=== PATIENT | male | born 1975 | race Caucasian/White ===

== ENCOUNTER 2020-11-17 11:42 | Emergency (ER) | payer OTHER, SELFPAY ==
[2020-11-17 11:51] VITALS: BP 130/85; PULSE 64; RESP 18; TEMP 36.7; O2SAT 97; BMI 30.3
--- NOTE | 2020-11-17 12:22 | ED_ITS ---
HPI - Extremity Problem General: Chief complaint: Extremity Injury, Lower Stated complaint: stepped on nail Time Seen by Provider: 11/17/20 11:46 History of Present Illness: HPI Narrative: Patient is a 45-year-old male comes to the ED after stepping on a nail. Patient says injury occurred yesterday evening. Patient just bought a house with some land and was cleaning some of the property up. He was wearing some rubber boots and walking there are over room grassy area and did see a board with a nail on it. He stepped on the nail and it went through his boot and into right foot. He then removed the nail from shoe and foot immediately. Afterwards he cleaned and rinsed the wound out. His main reason for coming to the ED today was to get a tetanus shot. Patient denies any other symptoms. Associated symptoms: Deny chest pain, fever(s) or rash Review of Systems Const: Denies: fever(s), chills or fatigue Eyes: Denies: change in vision or eye discomfort ENMT: Denies: throat pain, odynophagia, nasal discharge or nasal congestion Card: Denies: chest pain, palpitations, edema, swelling of feet/ankles, dyspnea on exertion or orthopnea Resp: Denies: dyspnea, productive cough or non-productive cough GI: Denies: abdominal pain, nausea, vomiting, diarrhea, constipation or hematochezia : Denies: flank pain, difficulty urinating, dysuria or hematuria Musc: Denies: neck pain, back pain or extremity swelling Skin/Breast: Reports: new lesions (small superficial puncture wound to bottom of right foot); Denies: rash Neuro: Denies: headache(s), numbness in extremities or weakness in extremities Physical Exam Const: COMMON NORMALS: no acute distress, patient oriented x3 and alert GENERAL APPEARANCE: cooperative and comfortable HENMT: COMMON NORMALS: normocephalic HEAD & SCALP: normocephalic MOUTH: Normal oral and palatal mucosa present THROAT: posterior oropharynx normal and uvula midline Neck/C-Spine: COMMON NORMALS: supple GENERAL: Yes normal visual inspection Resp: COMMON NORMALS: normal respiratory effort, No retractions, No use of accessory muscles and clear to auscultation bilaterally AUSCULTATION: clear to auscultation bilaterally Cardio: COMMON NORMALS: regular rate, regular rhythm, S1 normal heart sound present, S2 normal heart sound present, No gallops present (Cardio), No clicks present (Cardio), No murmurs present (Cardio) and Peripheral pulses 2+ throughout RATE: regular rate RHYTHM: regular rhythm HEART SOUNDS: S1 normal heart sound present and S2 normal heart sound present PERIPHERAL PULSES: Peripheral pulses 2+ throughout GI: COMMON NORMALS: Normal to inspection, nondistended, normoactive bowel sounds present, Soft to palpation, non-tender and no masses PALPATION: Yes Soft to palpation : COMMON NORMALS: Yes no CVA tenderness BLADDER/KIDNEY EXAM: Yes no CVA tenderness Back/Pelvis: COMMON NORMALS: no CVA tenderness Extremity: NARRATIVE EXTREMITY EXAM: Small superficial puncture wound to bottom of right foot. No signs of cellulitis present GENERAL: Yes normal exam except as noted Neuro: COMMON NORMALS: patient oriented x3 and moves all extremities SENSORIUM/ORIENTATION: Yes alert Skin: NARRATIVE SKIN EXAM: Small superficial puncture wound to bottom of right foot. No signs of cellulitis present Course Vital Signs: Vital signs: Vital Signs Temperature 97.9 F 11/17/20 13:12 Pulse Rate 70 11/17/20 13:12 Respiratory Rate 16 11/17/20 13:12 Blood Pressure 129/80 11/17/20 13:12 Pulse Oximetry 96 11/17/20 13:12 MDM - Extremity (Nontraumatic) MDM Narrative: Medical decision making narrative: Patient is a 45-year-old male who comes to the ED after stepping on a nail. Patient removed nail before coming to the ED. His main concern was getting tetanus shot updated. he has small superficial puncture wound to bottom of right foot. Patient was given his tetanus shot and discharged home with prescription for cephalexin. He was told to follow-up with his PCP in 7 to 10 days for reevaluation. Return to ED precautions given. Patient understood agree with plan. Discharge Plan Discharge Patient Disposition: Home Clinical Impression: Puncture wound of foot Qualifiers: Encounter type: initial encounter Laterality: right Qualified Code(s): S91.331A - Puncture wound without foreign body, right foot, initial encounter Condition: Stable Prescriptions: New cephalexin 500 mg capsule 500 mg PO Q6H 7 Days Qty: 28 RF: 0 Discharge Orders: Discharge ED (Routine); Ordered 11/17/20 Ordered By: Chapincito Padron Discharge Diet: Regular Discharge Activity: Resume usual activity Patient Instructions: Puncture Wound (ED), Opioid Safety Activity Restrictions/Additional Instructions: Follow-up with medical provider as directed in 7 to 10 days for reevaluation. Take medications as prescribed. Return to the ER or your medical provider if condition worsens. Please read and understand discharge instructions. Thank you for choosing [facility] for your healthcare needs today. Please realize this is an emergency room and that we are providing you with a medical screening exam and this may not be complete and all inclusive of all the testing and or work up that you may need to determine your ailment or severity of your illness. It is very important that you follow up as instructed or that you return to the Emergency Department should you have concerns or if your condition changes or worsens in any way. Coding Level of Care Code ED Packaging Machine Operator for Napoleon Blackwell Exam Comprehensive
[2020-11-17 13:00] VITALS: BP 129/80; PULSE 70; RESP 16; TEMP 36.6; O2SAT 96
[2020-11-17] MEDS: tetanus-dipt-pertussis 0.5 mL SDV IM (13:05)
[2020-11-17 13:12] VITALS: BP 129/80; PULSE 70; RESP 16; TEMP 36.6; O2SAT 96
== END 2020-11-17 13:14 | disposition home or self-care (01) ==
PROVIDERS: Emergency Provider Physician Assistant
DX: S91.331A Puncture wound without foreign body, right foot, initial encounter (principal); W45.0XXA Nail entering through skin, initial encounter; Z23 Encounter for immunization
CPT/HCPCS: 90471; 90715; 99282

== ENCOUNTER 2020-11-29 10:51 | Emergency (ER) | payer OTHER, SELFPAY ==
[2020-11-29 11:07] VITALS: BP 127/86; PULSE 73; RESP 18; TEMP 36.3; O2SAT 99; BMI 30.3
[2020-11-29 11:15] VITALS: PULSE 64; RESP 18; O2SAT 99
--- NOTE | 2020-11-29 11:24 | W.ED.BACK ---
HPI - Back Pain/Injury General: Chief Complaint: Back Pain/Injury Stated Complaint: Lower back pain Time Seen by Provider: 11/29/20 11:08 History of Present Illness: HPI Narrative: Patient was lifting 50 pound hay ad yesterday and he wrenched his back when he was been down twisting and pick and went up. 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 Patient says he is having spasms now in his back MD elicited complaint: back injury Pertinent past history: prior back pain Onset (ago): day(s) Timing: constant Severity: mild Quality: stabbing and aching Location: lumbar spine Radiation: none Exacerbating factors: movement and sitting upright Relieving factors: immobilization Context: while lifting and turning/twisting Associated symptoms: Reports no associated symptoms; Deny abdominal pain, chills, fever(s), nausea or vomiting Review of Systems Const: Denies: fever(s), chills or body aches Eyes: Denies: change in vision or blurry vision ENMT: Denies: throat pain or nasal congestion Card: Denies: chest pain or dyspnea on exertion Resp: Denies: dyspnea, productive cough or non-productive cough GI: Denies: abdominal pain, nausea or vomiting : Denies: difficulty urinating Musc: Reports: back pain; Denies: extremity pain Skin/Breast: Denies: rash Neuro: Denies: headache(s) Psych: Denies: anxiety or depression Deo/Lymph: Denies: easy bruising Physical Exam Const: COMMON NORMALS: no acute distress, average body habitus and patient oriented x3 HENMT: COMMON NORMALS: normocephalic HEAD & SCALP: normal to inspection and normocephalic FACE & SINUS: normal facial exam Eye: COMMON NORMALS: conjunctivae normal GENERAL EYE: appearance normal, both eyes and all related structures CONJUNCTIVA: Yes conjunctivae normal Neck/C-Spine: COMMON NORMALS: no JVD Chest: COMMONS NORMALS: normal inspection of the chest Resp: COMMON NORMALS: normal respiratory effort and clear to auscultation bilaterally AUSCULTATION: clear to auscultation bilaterally Cardio: COMMON NORMALS: no JVD, regular rate and regular rhythm RATE: regular rate RHYTHM: regular rhythm GI: COMMON NORMALS: Normal to inspection, nondistended, normoactive bowel sounds present Back/Pelvis: LUMBAR SPINE/LOWER BACK: Yes normal to inspection, Yes paraspinal muscle tenderness Lumbar paraspinal muscle tenderness: right, Yes straight leg raise positive right Straight leg raise positive details right: at 30 degrees and No straight leg raise positive left Extremity: COMMON NORMALS: normal to inspection and full ROM Neuro: COMMON NORMALS: patient oriented x3 Course Vital Signs: Vital signs: Vital Signs Temperature 97.3 F L 11/29/20 11:07 Pulse Rate 71 11/29/20 11:43 Respiratory Rate 18 11/29/20 11:43 Blood Pressure 127/74 11/29/20 11:43 Pulse Oximetry 97 11/29/20 11:43 MDM - Back Pain/Injury MDM Narrative: Medical decision making narrative: Appears to have acute flareup lumbar/bulging disc. Patient instructed not to do any lifting over 20 pounds for next couple weeks apply ice to his back follow-up with his primary care provider take medication as directed. Discharge Plan Discharge Patient Disposition: Home Clinical Impression: Strain of lumbar region Qualifiers: Encounter type: initial encounter Qualified Code(s): S39.012A - Strain of muscle, fascia and tendon of lower back, initial encounter Condition: Stable Prescriptions: New prednisone 20 mg tablet 20 mg PO DAILY Qty: 7 RF: 0 Celebrex 100 mg capsule 100 mg PO BID Qty: 20 RF: 0 cyclobenzaprine 5 mg tablet 5 mg PO TID PRN (Reason: muscle spasm) Qty: 10 RF: 0 Discharge Orders: Discharge ED (Routine); Ordered 11/29/20 Ordered By: Eliezer Davenport Discharge Diet: Usual diet Discharge Activity: Limit activity as instructed Patient Instructions: Low Back Strain (ED) Activity Restrictions/Additional Instructions: Follow-up with medical provider as directed. Take medications as prescribed. Return to the ER or your medical provider if condition worsens. Please read and understand discharge instructions. If any questions ask please. Coding Level of Care Code ED Hopper Filler for Napoleon Fwd Exam Comprehensive
[2020-11-29] MEDS: orphenadrine 30 mg/mL Inj 2 mL 60 MG IM (11:36)
[2020-11-29] MEDS: ketorolac 60 mg/2 mL INJ IM (11:36)
[2020-11-29 11:43] VITALS: BP 127/74; PULSE 71; RESP 18; O2SAT 97
== END 2020-11-29 11:52 | disposition home or self-care (01) ==
PROVIDERS: Emergency Provider Nurse Practitioner Family
DX: S39.012A Strain of muscle, fascia and tendon of lower back, initial encounter (principal); X50.0XXA Overexertion from strenuous movement or load, initial encounter
CPT/HCPCS: 96372; 99283; J1885; J2360

== ENCOUNTER 2021-05-04 13:00 | Outpatient (RCR) | payer OTHER, SELFPAY | END 2021-05-12 23:59 | disposition home or self-care (01) | LOC: SPT 13:00 | PROVIDERS: PCP Family Medicine; Referring Provider Family Medicine; Visit Provider Family Medicine | DX: M54.50 Low back pain, unspecified (principal) | CPT/HCPCS: 97110; 97162 ==

== ENCOUNTER 2021-05-13 06:00 | Outpatient (RCR) | payer OTHER, SELFPAY | END 2021-06-12 23:59 | disposition home or self-care (01) | LOC: SPT 06:00 | PROVIDERS: PCP Family Medicine; Referring Provider Family Medicine; Visit Provider Family Medicine | DX: M54.50 Low back pain, unspecified (principal) | CPT/HCPCS: 97110 ==

== ENCOUNTER 2021-06-13 06:00 | Outpatient (RCR) | payer OTHER, SELFPAY | END 2021-07-13 23:59 | disposition home or self-care (01) | LOC: SPT 06:00 | PROVIDERS: PCP Family Medicine; Referring Provider Family Medicine; Visit Provider Family Medicine | DX: M54.50 Low back pain, unspecified (principal) | CPT/HCPCS: 97110 ==

== ENCOUNTER 2021-07-14 06:00 | Outpatient (RCR) | payer OTHER, SELFPAY | END 2021-08-10 23:59 | disposition home or self-care (01) | LOC: SPT 06:00 | PROVIDERS: PCP Family Medicine; Referring Provider Family Medicine; Visit Provider Family Medicine | DX: M54.50 Low back pain, unspecified (principal) | CPT/HCPCS: 97110 ==

== ENCOUNTER 2022-10-01 18:40 | Emergency (ER) | payer OTHER, SELFPAY ==
[2022-10-01 18:47] VITALS: BP 127/98; PULSE 72; RESP 14; TEMP 36.7; O2SAT 98
--- NOTE | 2022-10-01 18:54 | XRR_ITS ---
PROCEDURE INFORMATION: Exam: XR Left Ankle Exam date and time: 10/01/2022 7:08 PM Age: 47 years old Clinical indication: Pain; Ankle; Left; Additional info: Injury, pain, Bernard, cont pain TECHNIQUE: Imaging protocol: Radiologic exam of the left ankle. Views: 3 or more views. COMPARISON: No relevant prior studies available. FINDINGS: Bones/joints: The talar dome is smooth. There is no osteochondral defect. The ankle mortise is intact. No acute fracture. No dislocation. Soft tissues: There is soft tissue edema. No foreign body. XR/XR ankle LT min 3V* [id number] IMPRESSION: No acute bony abnormality.
--- NOTE | 2022-10-01 19:44 | W.ED.EXTPRO ---
HPI - Extremity Problem General: Chief complaint: Extremity Injury, Lower Stated complaint: left ankle injury Time Seen by Provider: 10/01/22 18:54 Source: patient Mode of arrival: ambulatory Limitations: no limitations History of Present Illness: Patient presents emergency department today for evaluation treatment of left lateral foot and ankle pain. 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 Patient rolled his left ankle in an inverted fashion. He states he has tried to walk it off and continue to work however, as it is now approximately 5 days out he still has swelling, bruising, and pain on ambulation he decided to come in for evaluation. Review of Systems General: Reports: 10 or more systems reviewed and unremarkable except in HPI and below Physical Exam Const: COMMON NORMALS: no acute distress, patient oriented x3 and alert HENMT: COMMON NORMALS: normocephalic, atraumatic and hearing grossly normal bilaterally HEAD & SCALP: normocephalic and atraumatic Eye: COMMON NORMALS: Equal, round and reactive pupils present, EOMs intact bilaterally and conjunctivae normal CONJUNCTIVA: Yes conjunctivae normal PUPIL: Yes Equal, round and reactive pupils present Neck/C-Spine: COMMON NORMALS: full ROM and no JVD Lymph: LYMPHATIC: no lymphadenopathy noted Resp: COMMON NORMALS: normal respiratory effort, No retractions and No use of accessory muscles Cardio: COMMON NORMALS: no JVD and regular rate RATE: regular rate Extremity: NARRATIVE EXTREMITY EXAM: Patient has swelling affecting the left lateral malleolus and along the left lateral portion of his foot including bruising. He is tender on palpation towards the distal fibula. No Achilles attachment tenderness and no specific proximal fifth metatarsal discomfort. Patient is ambulatory and weightbearing but with an altered gait favoring the left ankle. Neuro: COMMON NORMALS: patient oriented x3 SENSORIUM/ORIENTATION: Yes alert Psych: COMMON NORMALS: mental status grossly normal, Normal thought process present, cooperative and normal affect THOUGHT PROCESS: Normal thought process present Skin: COMMON NORMALS: no rashes or lesions noted and turgor normal GENERAL SKIN EXAM: no rashes or lesions noted and turgor normal Course Vital Signs: Vital signs: Vital Signs Temperature 98.0 F 10/01/22 18:47 Pulse Rate 72 10/01/22 18:47 Respiratory Rate 14 10/01/22 18:47 Blood Pressure 127/98 10/01/22 18:47 Pulse Oximetry 98 10/01/22 18:47 Oxygen Delivery Me thod Room Air 10/01/22 18:47 MDM - Extremity (Nontraumatic) Medical Decision Making Patient presented to the emergency department today for concerns of continued swelling, bruising, pain, and altered gait of his left ankle secondary to an inversion injury on Tuesday. Patient's x-rays have not been finalized and at this time, I see no significant or obvious bony abnormality of the lateral ankle where he indicates most of his pain. Still, I indicated we did not for final read but, patient is wanting to go home and indicates he will continue with RICE therapy. He states he has Jake bandages at home and, does not have to work in the field tomorrow we will try and keep it up and elevated and apply ice. He states he will follow-up with his primary care doctor if needed and I encouraged him to have follow-up if he continues to have discomfort. Also, he should check in on his x-ray results. If they are positive for concerns of fracture he needs to be seen and reevaluated either here or through PCP as he will need to be immobilized more significantly and have orthopedic follow-up. Patient verbalized understanding and agreement to treatment plan. Differential Diagnosis Likely lower extremity edema (Distal fibula fracture, proximal fifth metatarsal fracture, strain, sprain) Discharge Plan Discharge Patient Disposition: Home Clinical Impression: Ankle sprain and strain Condition: Stable Prescriptions: No Action prednisone 20 mg tablet 20 mg PO DAILY Qty: 7 0RF Celebrex 100 mg capsule 100 mg PO BID Qty: 20 0RF cyclobenzaprine 5 mg tablet 5 mg PO TID PRN (Reason: muscle spasm) Qty: 10 0RF Discharge Orders: Discharge ED (Routine); Ordered 10/01/22 Ordered By: Mee Berry Referrals: Gwen Esposito MD [Primary Care Provider] - Discharge Diet: Usual diet Discharge Activity: Limit activity as instructed Patient Instructions: Ankle Sprain (ED) Activity Restrictions/Additional Instructions: Final interpretation of your x-ray is still pending by the radiologist however, I appreciate no large or significant displaced fractures. You have significant swelling and bruising which certainly indicates an ankle sprain or injury of the soft and connective tissues. Is much as possible, keep it wrapped, up and elevated, use ice, Tylenol, and ibuprofen. If you have any other issues we do recommend being seen and reevaluated again either here in the ER or with your primary care doctor as you may require more significant bracing and follow-up through orthopedics. Coding Level of Care Code ED Machine Presser for Napoleon Blackwell
== END 2022-10-01 19:40 | disposition home or self-care (01) ==
PROVIDERS: Emergency Provider Physician Assistant; PCP Family Medicine
DX: S93.402A Sprain of unspecified ligament of left ankle, initial encounter (principal); S96.912A Strain of unspecified muscle and tendon at ankle and foot level, left foot, initial encounter; X50.1XXA Overexertion from prolonged static or awkward postures, initial encounter
CPT/HCPCS: 73610; 99283

== ENCOUNTER → 2024-03-23 10:59 | Outpatient (BNVA) | payer OTHER, SELFPAY | PROVIDERS: PCP Family Medicine; Referring Provider Family Medicine; Visit Provider Specialist | DX: G62.9 Polyneuropathy, unspecified (principal); G60.3 Idiopathic progressive neuropathy; R03.0 Elevated blood-pressure reading, without diagnosis of hypertension; F07.81 Postconcussional syndrome | CPT/HCPCS: 99203; 99204 ==

== ENCOUNTER → 2024-04-06 10:38 | Outpatient (BNVA) | payer OTHER, SELFPAY | PROVIDERS: PCP Family Medicine; Visit Provider Specialist | DX: G62.89 Other specified polyneuropathies (principal) | CPT/HCPCS: 95909; 95910 ==

== ENCOUNTER → 2024-05-03 12:15 | Outpatient (BNVA) | payer OTHER, SELFPAY | PROVIDERS: PCP Family Medicine; Visit Provider Specialist | DX: G89.29 Other chronic pain; M51.26 Other intervertebral disc displacement, lumbar region; E11.42 Type 2 diabetes mellitus with diabetic polyneuropathy; G62.89 Other specified polyneuropathies; R03.0 Elevated blood-pressure reading, without diagnosis of hypertension; F07.81 Postconcussional syndrome | CPT/HCPCS: 36415; 82607; 83036; 84439; 84443; 85651; 86160; 86162; 86235; 86255; 86334; 86376; 99214 ==

== ENCOUNTER 2024-05-16 09:30 | Outpatient (CLI) | payer OTHER, SELFPAY ==
--- NOTE | 2024-05-16 09:30 | MR_ITS ---
WS: [id number] MRI LUMBAR SPINE WITH AND WITHOUT CONTRAST HISTORY: Chronic low back pain. Bilateral lower extremity tingling. No acute changes. COMPARISON: None available. TECHNIQUE: Sagittal and axial multisequence imaging is submitted. Postcontrast MultiHance 20 mL. Small central disc protrusions in the cervical spine spine at C5-6 and C6-7. Very slight anterior wedging of L1 with no marrow edema. Mild disc desiccation at L5-S1 without loss of height. Conus terminates normally at L1-2 disc level. L1-L2: Normal. L2-L3: Normal. L3-L4: Mild ligamentum flavum and facet arthritis. No stenosis. L4-L5: Very mild annular disc bulging with mild ligamentum flavum and facet arthritis. Very mild encr oachment upon the LEFT foramen. No contact on the nerve roots. L5-S1: Mild annular disc bulging with mild osteophytic ridging. Shallow RIGHT foraminal disc protrusi on. There is no disc contact on the S1 nerve roots. Moderate bilateral facet joint arthritis. There i s mild bilateral foraminal narrowing with mild contact on the exiting L5 nerve roots. Postcontrast imaging is negative. No discitis or osteomyelitis. No enhancing lesions within the roxanne jose. MR/MR lumbar spine wo/w con [id number] IMPRESSION: 1. No high-grade central or foraminal stenosis. 2. L5-S1: Mild annular disc bulging with osteophytic ridging. There is very mi ld contact on the exiting L5 nerve roots. 3. Mild ligamentum flavum and facet arthritis from L3-4 to L5-S1. 4. No discitis or osteomyelitis. No enhancing masses.
[2024-05-16] MEDS: gadobenate dimeglumine 20 mL vial IV (10:05)
== END 2024-05-16 09:38 | disposition home or self-care (01) ==
PROVIDERS: PCP Family Medicine; Visit Provider Specialist
DX: M51.26 Other intervertebral disc displacement, lumbar region (principal); M25.78 Osteophyte, vertebrae
CPT/HCPCS: 72158

== ENCOUNTER 2024-05-22 10:52 | Emergency (ER) | payer OTHER, SELFPAY ==
[2024-05-22 11:27] VITALS: BP 114/79; PULSE 71; RESP 16; TEMP 36.7; O2SAT 97; BMI 29.8
--- NOTE | 2024-05-22 12:28 | W.ED.EYEPROB ---
HPI - Eye Problem General: Chief complaint: Eye Problems Stated complaint: something stuck in left eye Time Seen by Provider: 05/22/24 12:26 Source: patient and family Mode of arrival: ambulatory Limitations: no limitations History of Present Illness: Patient is a 48-year-old male presents to ED today with a complaint of a foreign body sensation to his left eye that he began noticing this morning around breakfast. No known injury or trauma or nothing he can think of that would have entered his eye. He states he did try to rub the eye and irrigate the foreign body out. He feels like he may have scratched it. He has not noticed any redness to the eye. No drainage. No visual loss or changes. He does not wear contact lenses. MD chief complaint: foreign body Onset (ago): hour(s) Onset description: sudden Duration: constant Location: left eye Eye Symptoms: foreign body sensation Place: home Mechanism: none Severity: mild Associated symptoms: Reports no associated symptoms; Denies fever(s) or headache(s) Treatments Prior to Arrival: irrigated eye Related Data Home Medications Medication Instructions Recorded Confirmed atorvastatin 80 mg tablet 40 mg PO DAILY 03/23/24 05/03/24 gabapentin 100 mg capsule 100 mg PO TID 03/23/24 05/03/24 oxybutynin chloride 5 mg 5 mg PO DAILY 03/23/24 05/03/24 tablet,extended release 24 hr prazosin 1 mg capsule 1 mg PO DAILY 03/23/24 05/03/24 Previous Rx's Medication Instructions Recorded erythromycin 5 mg/gram (0.5 %) eye 1 applic ophthalmic (eye) Q4H 7 05/22/24 ointment (3.5 gram tube) days #1 g Allergies Allergy/AdvReac Type Severity Reaction Status Date / Time No Known Allergies Allergy Verified 05/22/24 11:27 Review of Systems Const: Denies: fever(s) Eyes: Denies: change in vision, blurry vision, blind spots, eye discharge, eye redness, floaters or seeing flashes Neuro: Denies: headache(s) PFS ED PFSH: Social History Smoking and tobacco/nicotine status: current every day tobacco/nicotine user Physical Exam Const: COMMON NORMALS: no acute distress, average body habitus, no limitations, alert and well nourished Eye: COMMON NORMALS: Equal, round and reactive pupils present, EOMs intact bilaterally and no scleral icterus GENERAL EYE: normal light reflex VISUAL ACUITY: Yes acuity normal PERIORBITAL: periorbital findings normal EYELID: eyelids normal SCLERA: sclerae normal CORNEA: Yes fluorescein used (small corneal abrasion at 3 o'clock position) PUPIL: Yes Equal, round and reactive pupils present DIRECT OPHTHALMOSCOPY: Yes normal light reflex Neuro: SENSORIUM/ORIENTATION: Yes alert Course Vital Signs: Vital signs: Vital Signs Temperature 98.1 F 05/22/24 11:27 Pulse Rate 71 05/22/24 11:27 Respiratory Rate 16 05/22/24 11:27 Blood Pressure 114/79 05/22/24 11:27 Pulse Oximetry 97 05/22/24 11:27 [facility] - Eye Problem Medical Decision Making No foreign bodies identified. Small corneal abrasion identified with fluorescein stain examination. Patient will be placed on erythromycin ophthalmic ointment. Return to ED precautions given. Medical Records I reviewed the patient's medical records. No radiology studies performed this visit Discharge Plan Discharge Patient Disposition: Home Clinical Impression: Abrasion of left cornea Qualifiers: Encounter type: initial encounter Qualified Code(s): S05.02XA - Injury of conjunctiva and corneal abrasion without foreign body, left eye, initial encounter Condition: Stable Prescriptions: New erythromycin 5 mg/gram (0.5 %) ointment 1 applic ophthalmic (eye) Q4H 7 Days Qty: 1 0RF No Action gabapentin 100 mg capsule 100 mg PO TID oxybutynin chloride 5 mg tablet extended release 24hr 5 mg PO DAILY atorvastatin 80 mg tablet 40 mg PO DAILY prazosin 1 mg capsule 1 mg PO DAILY Discharge Orders: Discharge ED (Routine); Ordered 05/22/24 Ordered By: Lisseth Rubin Referrals: Gwen Esposito MD [Primary Care Provider] - Patient Instructions: Corneal Abrasion (ED), Corneal Abrasion (DC) Activity Restrictions/Additional Instructions: You may continue to irrigate the eye. Use your eye ointment as directed. You need to follow-up with primary care or eye doctor later this week if symptoms do not seem to be improving. You need to return to the emergency department at any point for visual changes, visual loss, severe eye pain, severe headache, or any other concerns you may have. Coding Level of Care Code ED [facility] Shift Lead for Napoleon Blackwell
[2024-05-22] MEDS: fluorescein 1 mg Strip EYE-LEFT (12:40)
[2024-05-22 12:55] VITALS: BP 115/79; PULSE 72; O2SAT 99
== END 2024-05-22 12:56 | disposition home or self-care (01) ==
PROVIDERS: Emergency Provider Physician Assistant; PCP Family Medicine
DX: S05.02XA Injury of conjunctiva and corneal abrasion without foreign body, left eye, initial encounter (principal); Z72.0 Tobacco use; X58.XXXA Exposure to other specified factors, initial encounter
CPT/HCPCS: 99283

== ENCOUNTER → 2024-10-16 10:38 | Outpatient (BNVA) | payer OTHER, SELFPAY | PROVIDERS: PCP Family Medicine; Visit Provider Specialist | DX: M51.26 Other intervertebral disc displacement, lumbar region (principal); G62.9 Polyneuropathy, unspecified; R03.0 Elevated blood-pressure reading, without diagnosis of hypertension; F07.81 Postconcussional syndrome; G62.89 Other specified polyneuropathies | CPT/HCPCS: 99214 ==

== ENCOUNTER 2024-10-29 16:44 | Emergency (ER) | payer OTHER, SELFPAY ==
[2024-10-29 16:59] VITALS: BP 127/84; PULSE 74; TEMP 36.8; O2SAT 97
[2024-10-29 18:43] LABS: Basophils % 0.2 %; Eosinophils # 0.2 10^3/uL (0.0-0.8); Eosinophils % 3.3 %; Hematocrit 49.1 % (37-53); Lymphocytes # 0.9 10^3/uL (0.8-4.8); Lymphocytes % 14.9 %; Mean Corpuscular HGB Conc 33.4 g/dL (30-55); Mean Corpuscular Hemoglobin 31.5 pg (27-33); Mean Corpuscular Volume 94.2 fl (82-101); Mean Platelet Volume 10.8 fL (7.4-10.4); Monocytes # 0.4 10^3/uL (0.2-0.9); Monocytes % 7.3 %; Neutrophils # 4.47 10^3/uL (1.8-7.7); Neutrophils % 73.8 %; Nucleated Red Blood Cells % 0 %; Platelet Count 146 10^3/cmm (157-399); Red Blood Count 5.21 10^6/uL (3.85-5.65); Red Cell Distribution Width 11.7 % (12.1-15.1); White Blood Count 6.05 10^3/uL (3.29-11.43)
[2024-10-29 19:00] LABS: Alanine Aminotransferase 59 U/L (0-41); Albumin Level 4.2 g/dL (3.5-5.2); Alkaline Phosphatase 102 U/L (40-130); Aspartate Amino Transferase 34 U/L (0-40); Blood Urea Nitrogen 11 mg/dL (6-20); Calcium 9.6 mg/dL (8.5-10.5); Carbon Dioxide 25 mmol/L (22-29); Chloride 102 mmol/L (98-107); Creatinine Clr Calc Pharmacy 122.0501; Globulin 3.4 g/dL (1.3-4.6); Glomerular Filtration Rate 89.7 mL/min (90-130); Glucose 94 mg/dL (65-115); Osmolality Calculated 287 mOsm/kg (285-295); Sodium 139 mmol/L (136-145); Total Bilirubin 0.7 mg/dL (0.15-1.2); Total Protein 7.6 g/dL (6.6-8.7)
--- NOTE | 2024-10-29 19:20 | ED_ITS ---
HPI - Skin/Abscess/Foreign Bdy 2 General: Chief complaint: Extremity Problem,Nontraumatic Stated complaint: allergic reaction to spider bite on R arm Time Seen by Provider: 10/29/24 17:54 Source: patient Mode of arrival: ambulatory Limitations: no limitations History of Present Illness: Patient is a 49-year-old male presents to ED today for concern for possible spider bite to his right upper extremity. 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 He states he initially noticed a small hemorrhagic like vesicle that has since ruptured and now he he has surrounding redness and some edema. Lesion initially burned but this has improved. He has not noticed any drainage. Does feel like he has some mild reactive axillary lymphadenopathy. MD complaint: insect bite/sting Onset (ago): day(s) Tetanus up to date: yes Location: RUE Severity: mild Quality: burning Pain Consistency: constant Relieving factors: none Associated symptoms: Reports no associated symptoms; Deny chills, fever(s), nausea or vomiting Treatments prior to arrival: none Related Data Home Medications ?Medication ?Instructions ?Recorded ?Confirmed atorvastatin 80 mg tablet 40 mg PO DAILY 03/23/2412/05 gabapentin 100 mg capsule 100 mg PO TID 03/23/2410/16 oxybutynin chloride 5 mg 5 mg PO DAILY 03/23/2410/16 tablet,extended release 24 hr prazosin 1 mg capsule 1 mg PO DAILY 03/23/2410/16 Previous Rx's ?Medication ?Instructions ?Recorded sulfamethoxazole 800 1 tab PO BID 7 days #14 tabs 10/29/24 mg-trimethoprim 160 mg tablet (Bactrim DS) Allergies Allergy/AdvReac Type Severity Reaction Status Date / Time No Known Allergies Allergy Verified 10/29/24 17:05 Review of Systems 2 Const: Denies: fever(s), chills, body aches, fatigue or malaise Card: Denies: chest pain Resp: Denies: dyspnea GI: Denies: nausea, vomiting or diarrhea Musc: Reports: extremity pain and extremity swelling; Denies: neck pain, back pain, joint pain, joint swelling, joint redness or joint warmth Skin/Breast: Reports: erythema Neuro: Denies: headache(s), numbness in extremities, weakness in extremities or sensory changes [facility] ED 2 PFSH: Social History Smoking and tobacco/nicotine status: current every day tobacco/nicotine user Physical Exam 2 Const: COMMON NORMALS: no acute distress, average body habitus, patient oriented x3, no limitations, healthy appearing, alert and well nourished G ENERAL APPEARANCE: cooperative ORIENTATION/CONSCIOUSNESS: Yes awake, Yes oriented to person, Yes oriented to place and Yes oriented to time Neck/C-Spine: COMMON NORMALS: no lymphadenopathy Chest: COMMONS NORMALS: normal inspection of the chest and normal palpation of entire chest wall Resp: COMMON NORMALS: normal respiratory effort Extremity: COMMON NORMALS: full ROM, capillary refill normal and no clubbing, cyanosis or edema GENERAL: Yes normal exam except as noted RIGHT UPPER EXTREMITY: Yes upper arm EXTREMITY IMAGE (FRONT): 1. small bite like lesion with mild underlying dusky appearance 2. mild surrounding erythema/localized e em felt more to be localized reaction vs developing cellulitis Neuro: COMMON NORMALS: patient oriented x3, moves all extremities, no focal motor deficits and no sensory deficits noted SENSORIUM/ORIENTATION: Yes alert, Yes oriented to person, Yes oriented to place and Yes oriented to time Skin: NARRATIVE SKIN EXAM: see above Course 2 Vital Signs: Vital signs: Vital Signs Temperature 98.3 F 10/29/24 16:59 Pulse Rate 74 10/29/24 16:59 Blood Pressure 127/84 10/29/24 16:59 Pulse Oximetry 97 10/29/24 16:59 Oxygen Delivery Me thod Room Air 10/29/24 16:59 MDM - Skin/Abscess/Foreign Bdy Medicial Decision Making Lesions consistent with a spider bite/insect bite/sting. No active necrosis currently. No systemic symptoms. Symptoms most likely consistent with a localized reaction. At this time I do not have a suspicion for secondary bacterial infection however patient will be provided an antibiotic prescription that he can fill if area continues to worsen. Otherwise we spoke about conservative therapies at home. Medical Records I reviewed the patient's medical records. Lab Data 10/29/24 18:26 10/29/24 18:26 Laboratory Results WBC 6.05 10^3/uL (3.29-11.43) 10/29/24 18:26 RBC 5.21 10^6/uL (3.85-5.65) 10/29/24 18: Hgb 16.40 g/dL (11.27-16.99) 10/29/24 18: Hct 49.1 % (37-53) 10/29/24 18: MCV 94.2 fl (82-101) 10/29/24 18: MCH 31.5 pg (27-33) 10/29/24 18: MCHC 33.4 g/dL (30-55) 10/29/24 18: RDW 11.7 % (12.1-15.1) L 10/29/24 18: Plt Count 146 10^3/cmm (157-399) L 10/29/24 18: MPV 10.8 fL (7.4-10.4) H 10/29/24 18: Neut % (Auto) 73.8 % 10/29/24 18: Lymph % (Auto) 14.9 % 10/29/24 18: [place] % (Auto) 7.3 % 10/29/24 18: Eos % (Auto) 3.3 % 10/29/24 18: Baso % (Auto) 0.2 % 10/29/24 18: Neut # (Auto) 4.47 10^3/uL (1.8-7.7) 10/29/24 18: Lymph # (Auto) 0.9 10^3/uL (0.8-4.8) 10/29/24 18: [place] # (Auto) 0.4 10^3/uL (0.2-0.9) 10/29/24 18: Eos # (Auto) 0.2 10^3/uL (0.0-0.8) 10/29/24 18: Baso # (Auto) 0.0 10^3/uL (0.0-0.1) 10/29/24 18: Nucleated RBC % (auto) 0 % 10/29/24 18: Nucleated RBCs # 0.0 /100WBC 10/29/24 18: Sodium 139 mmol/L (136-145) 10/29/24 18: Potassium 4.0 mmol/L (3.5-5.1) 10/29/24 18:26 Chloride 102 mmol/L (98-107) 10/29/24 18:26 Carbon Dioxide 25 mmol/L (22-29) 10/29/24 18:26 Anion Gap 16.0 (5-19) 10/29/24 18:26 BUN 11 mg/dL (6-20) 10/29/24 18:26 Creatinine 0.9 mg/dL (0.7-1.2) 10/29/24 18:26 GFR Calculation 89.7 mL/min (90-130) L 10/29/24 18:26 Glucose 94 mg/dL (65-115) 10/29/24 18:26 Calculated Osmolality 287 mOsm/kg (285-295) 10/29/24 18:26 Calcium 9.6 mg/dL (8.5-10.5) 10/29/24 18:26 Total Bilirubin 0.7 mg/dL (0.15-1.2) 10/29/24 18:26 AST 34 U/L (0-40) 10/29/24 18:26 ALT 59 U/L (0-41) H 10/29/24 18:26 Alkaline Phosphatase 102 U/L (40-130) 10/29/24 18:26 Total Protein 7.6 g/dL (6.6-8.7) 10/29/24 18:26 Albumin 4.2 g/dL (3.5-5.2) 10/29/24 18:26 Globulin 3.4 g/dL (1.3-4.6) 10/29/24 18:26 No radiology studies performed this visit Discharge Plan Discharge Patient Disposition: Home Clinical Impression: Accidental spider bite Condition: Stable Prescriptions: New sulfamethoxazole-trimethoprim [Bactrim DS] 800-160 mg tablet 1 tab PO BID 7 Days Qty: 14 0RF No Action gabapentin 100 mg capsule 100 mg PO TID oxybutynin chloride 5 mg tablet extended release 24hr 5 mg PO DAILY atorvastatin 80 mg tablet 40 mg PO DAILY prazosin 1 mg capsule 1 mg PO DAILY Discharge Orders: Discharge ED (Routine); Ordered 10/29/24 Ordered By: Lisseth Rubin Referrals: Gwen Esposito MD [Primary Care Provider, Family Practice] Patient Instructions: Brown Recluse Spider Bite, Insect Bite or Sting (ED) Activity Restrictions/Additional Instructions: As we discussed, I would continue to monitor your bite closely. You may use topical benadryl and/or hydrocortisone cream to help with itching. If the bite continues to enlarge and become more swollen or if redness/warmth worsens, you may fill antibiotics and start but otherwise I would attempt to treat conservatively. Print Language: Macedonian Coding Level of Care Code ED Art Department Head for Napoleon Blackwell
[2024-10-29 19:31] VITALS: BP 128/95; PULSE 87; RESP 17; O2SAT 99
== END 2024-10-29 19:32 | disposition home or self-care (01) ==
PROVIDERS: Family Medicine; Emergency Provider Physician Assistant; PCP Family Medicine
DX: S40.861A Insect bite (nonvenomous) of right upper arm, initial encounter (principal); Z72.0 Tobacco use; W57.XXXA Bitten or stung by nonvenomous insect and other nonvenomous arthropods, initial encounter
CPT/HCPCS: 36415; 80053; 85025; 87040; 99283